=== PATIENT | male | born 1955 | race Caucasian/White ===

== ENCOUNTER 2016-10-24 06:55 | Day surgery (SDC) | payer OTHER ==
[~2016-10-24] VITALS: Ht 193 cm; Wt 86.0 kg
[~2016-10-24 06:55] MED LIST: ALLO100T30 PO
[2016-10-24] MEDS ORDERED: LACTATED RINGERS 1,000 ML IV SCH (07:24)
[2016-10-24] MEDS ORDERED: LIDOCAINE 1%, 2ML SQ PRN (07:30)
[2016-10-24] MEDS ORDERED: COLC0.6T37 PO (07:46)
[2016-10-24] MEDS ORDERED: ALLO100T30 PO (07:46)
[2016-10-24] MEDS ORDERED: INDOCIN PO (07:46)
[2016-10-24] MEDS ORDERED: POLY1GRA PO (07:46)
[2016-10-24] MEDS ORDERED: THIA100T27 PO (07:46)
[2016-10-24] MEDS ORDERED: METO25TA35 PO (07:46)
[2016-10-24] MEDS ORDERED: ASPI-496 PO (07:46)
[2016-10-24] MEDS ORDERED: HYDR-3241 PO (08:03)
[2016-10-24 08:06] VITALS: BP 127/72
[2016-10-24] MEDS ORDERED: MIDAZOLAM 1 MG/ML, 2ML ONE (08:06)
[2016-10-24 08:08] LABS: DAU SCREEN DISCLAIMER
[2016-10-24] MEDS ORDERED: ALBUTEROL SULFATE 2.5 MG/3 ML NPPB PRN (09:30)
[2016-10-24] MEDS ORDERED: PROMETHAZINE 25 MG/ML, 1ML IV PRN (09:30)
[2016-10-24] MEDS ORDERED: LABETALOL 5MG/ML, 20ML IV PRN (09:30)
[2016-10-24] MEDS ORDERED: ACETAMINOPHEN 325 MG TABLET PO PRN (09:30)
[2016-10-24] MEDS ORDERED: ONDANSETRON 2MG/ML, 2ML IVPush PRN (09:30)
[2016-10-24] MEDS ORDERED: FENTANYL PF 100 MCG/2ML IV PRN (09:30)
[2016-10-24] MEDS ORDERED: HYDROcodone/APAP 7.5-325MG/15ML UDC PO PRN (09:30)
[2016-10-24] MEDS ORDERED: OXYcodone 5 MG/5 ML ORAL.SOL UDC PO PRN (09:30)
[2016-10-24] MEDS ORDERED: METOPROLOL 1 MG/ML, 5ML IV PRN (09:30)
[2016-10-24] MEDS ORDERED: EPHEDRINE 50 MG/ML, 1ML IVPush PRN (09:30)
[2016-10-24] MEDS ORDERED: MEPERIDINE/PF 25MG/0.5ML IVPush PRN (09:30)
[2016-10-24] MEDS ORDERED: hydrALAzine 20 MG/ML, 1ML IV PRN (09:30)
[2016-10-24] MEDS ORDERED: PROPOFOL 10 MG/ML, 20ML ONE (15:59)
== END 2016-10-24 11:50 ==
LOC: OUT 06:55
PROVIDERS: ATTEND Internal Medicine Geriatric Medicine
DX: C20 Malignant neoplasm of rectum (principal); I25.10 Atherosclerotic heart disease of native coronary artery without angina pectoris; I10 Essential (primary) hypertension; M10.9 Gout, unspecified; Z79.82 Long term (current) use of aspirin; Z86.73 Personal history of transient ischemic attack (TIA), and cerebral infarction without residual deficits
CPT/HCPCS: 45341; 80307; 93005; J2250; J2704; J7120

== ENCOUNTER 2017-01-30 10:25 | Day surgery (SDC) | payer OTHER, MEDICAID ==
[~2017-01-30] VITALS: Ht 193 cm; Wt 86.6 kg
[~2017-01-30 10:25] MED LIST changes: +ASPI-496 PO; +COLC0.6T37 PO; +HYDR-3241 PO; +INDOCIN PO; +METO25TA35 PO; +POLY1GRA PO; +THIA100T27 PO
[2017-01-30 11:00] VITALS: BP 110/75
[2017-01-30] MEDS ORDERED: LACTATED RINGERS 1,000 ML IV SCH (11:05)
[2017-01-30] MEDS ORDERED: TRAZ50TA18 PO (11:09)
[2017-01-30] MEDS ORDERED: MULT-6 PO (11:09)
[2017-01-30] MEDS ORDERED: PROPOFOL 10 MG/ML, 20ML ONE ×2 (12:20→12:52)
[2017-01-30] MEDS ORDERED: ACETAMINOPHEN 325 MG TABLET PO PRN (12:30)
[2017-01-30] MEDS ORDERED: EPHEDRINE 50 MG/ML, 1ML IVPush PRN (12:30)
[2017-01-30] MEDS ORDERED: METOCLOPRAMIDE 5 MG/ML, 2ML IV PRN (12:30)
[2017-01-30] MEDS ORDERED: MEPERIDINE/PF 25MG/0.5ML IVPush PRN (12:30)
[2017-01-30] MEDS ORDERED: LABETALOL 5MG/ML, 20ML IV PRN (12:30)
[2017-01-30] MEDS ORDERED: METOPROLOL 1 MG/ML, 5ML IV PRN (12:30)
[2017-01-30] MEDS ORDERED: ALBUTEROL SULFATE 2.5 MG/3 ML NPPB PRN (12:30)
[2017-01-30] MEDS ORDERED: hydrALAzine 20 MG/ML, 1ML IV PRN (12:30)
[2017-01-30] MEDS ORDERED: PROMETHAZINE 25 MG/ML, 1ML IV PRN (12:30)
[2017-01-30] MEDS ORDERED: OXYcodone 5 MG/5 ML ORAL.SOL UDC PO PRN (12:30)
[2017-01-30] MEDS ORDERED: HYDROcodone/APAP 7.5-325MG/15ML UDC PO PRN (12:30)
[2017-01-30] MEDS ORDERED: MIDAZOLAM 1 MG/ML, 2ML IV PRN (12:30)
[2017-01-30] MEDS ORDERED: FENTANYL PF 100 MCG/2ML IV PRN (12:30)
[2017-01-30] MEDS ORDERED: HYDROmorphone 1 MG/ML, 1ML IV PRN (12:30)
[2017-01-30] MEDS ORDERED: ONDANSETRON 2MG/ML, 2ML IVPush PRN (12:30)
[2017-01-30] MEDS ORDERED: MIDAZOLAM 1 MG/ML, 2ML ONE (12:45)
[2017-01-30] MEDS ORDERED: FENTANYL PF 100 MCG/2ML ONE (12:45)
== END 2017-01-30 14:55 ==
LOC: OUT 10:25
PROVIDERS: ATTEND Internal Medicine
DX: C20 Malignant neoplasm of rectum (principal); I10 Essential (primary) hypertension; M10.9 Gout, unspecified
CPT/HCPCS: 43239; 45341; 88305; 93005; J2250; J2704; J3010; J7120